=== PATIENT | female | born 1950 | race Caucasian/White ===

== ENCOUNTER → 2017-02-01 | Outpatient (CLI) | payer MEDICARE, BC ==
[~2017-02-01] MED LIST: CALTRATE-600 W600 MG PO; LEVOTHYROXINE88 MCG PO; NORCO 5-325 TA1 EACH PO; NORVASC5 MG PO; POLYSPORIN OINT15 GM TP; PRILOSEC DPS20 MG PO; [UNRECOGNIZED DRUG - OTHER] AU
== END | disposition home or self-care (01) ==
LOC: RAD.S 13:48
PROC: 0GBH3ZX Excision of Right Thyroid Gland Lobe, Percutaneous Approach, Diagnostic (ICD-10-PCS; principal; 2017-02-01)
DX: E04.1 Nontoxic single thyroid nodule (principal)